=== PATIENT | female | born 1975 | race Caucasian/White ===

== ENCOUNTER → 2018-09-01 | Outpatient (CLI) | payer BC, OTHER ==
--- NOTE | 2018-09-01 11:43 | Diagnostic Imaging Report ---
PROCEDURE: US Gallbladder. TECHNIQUE: Multiple real-time grayscale images were obtained over the right upper quadrant in various projections. INDICATION: Abdominal pain. COMPARISON: There are no prior studies available for comparison. FINDINGS: There is no evidence for cholelithiasis or acute cholecystitis. The common bile duct was not well visualized. The liver does not appear to be enlarged. There is no focal mass involving the liver. The biliary tree is not abnormally distended. The right kidney is generally unremarkable although the inferior pole was somewhat difficult to visualize. The pancreatic head was also partially obscured. The aorta and inferior vena cava are generally unremarkable. IMPRESSION: 1. There is no acute abnormality of the right upper quadrant. However, the common bile duct, the inferior pole of the right kidney and pancreatic head are partially obscured. 2. If clinical concern regarding an acute abnormality of the gallbladder persists and further imaging is desired, then nuclear medicine hepatobiliary scan would be recommended. Dictated by: Dictated on workstation # [id number]
== END ==
LOC: RAD 09:34
PROVIDERS: ATTEND Nurse Practitioner Family
DX: R14.2 Eructation (principal); R10.11 Right upper quadrant pain
CPT/HCPCS: 76705

== ENCOUNTER → 2018-09-19 | Outpatient (CLI) | payer OTHER ==
[~2018-09-19] MED LIST: CATHETER FLUSH 10 ML SYR IV PRN
--- NOTE | 2018-09-19 13:25 | Diagnostic Imaging Report ---
HEPATOBILIARY SCAN DATE: September 19, 2018. INDICATION: 43-year-old female, abdominal pain. Comparison: Right upper quadrant abdominal ultrasound September 01, 2018. PROCEDURE: 5.48 mCi of Tc-99m Choletec was administered intravenously and serial anterior planar images over the liver and upper abdomen were obtained. FINDINGS: There is homogenous activity throughout the liver with good clearance of background activity. This indicates good hepatocellular function. Biliary tree activity is seen at 10 minutes. The gallbladder is seen at 15 minutes. There is no enterogastric reflux. The biliary tree is patent. There is no evidence of acute cholecystitis. Ensure was administered for calculation of gallbladder ejection fraction. Gallbladder ejection fraction was calculated to be 28%. IMPRESSION: 1. No evidence of acute cholecystitis or complete common bile duct obstruction. 2. Gallbladder ejection fraction measured lower limits of normal which may be seen with biliary dyskinesia and/or chronic cholecystitis. Dictated by: Dictated on workstation # [id number]
== END ==
LOC: CARD 09:31
PROVIDERS: ATTEND Nurse Practitioner Family
DX: R14.0 Abdominal distension (gaseous) (principal); R14.2 Eructation
CPT/HCPCS: 78227

== ENCOUNTER → 2020-07-21 | Outpatient (CLI) | payer OTHER ==
--- NOTE | 2020-07-21 11:00 | Diagnostic Imaging Report ---
INDICATION: Fall with right hip pain. Time of exam: 10:26 AM Two views of the right hip show normal femoral acetabular alignment. Femoral head and neck are intact. No fractures are seen. Right-sided rami are intact. IMPRESSION: No acute bony abnormality is detected. Dictated by: Dictated on workstation # [id number]
== END ==
LOC: RAD FS 10:14
PROVIDERS: ATTEND Nurse Practitioner
DX: M25.551 Pain in right hip (principal); W19.XXXA Unspecified fall, initial encounter
CPT/HCPCS: 73502

== ENCOUNTER → 2020-11-14 | Outpatient (CLI) | payer OTHER ==
--- NOTE | 2020-11-14 10:04 | Diagnostic Imaging Report ---
INDICATION: Left foot pain. TIME OF EXAM: 9:17 AM 3 views left foot were obtained. FINDINGS: Metatarsals are intact. Phalanges are intact. Midfoot and hindfoot are unremarkable. No fractures are seen. IMPRESSION: No acute bony abnormality is detected. Dictated by: Dictated on workstation # [id number]
== END ==
LOC: ORTHO 09:02
PROVIDERS: ATTEND Orthopaedic Surgery
DX: M79.672 Pain in left foot (principal)
CPT/HCPCS: 73630; G0463; 99203

== ENCOUNTER 2021-03-30 08:33 | Outpatient (CLI) | payer OTHER ==
[~2021-03-30] VITALS: Ht 165 cm; Wt 70.3 kg
[2021-03-30 09:03] VITALS: BP 131/62
[2021-03-30] MEDS ORDERED: SOTROVIMAB 500 MG/NS 100 ML IVPB IV ONE ×2 (09:15)
[2021-03-30] MEDS ORDERED: ACETAMINOPHEN 500 MG TAB (TYLENOL) PO PRN (09:15)
[2021-03-30] MEDS ORDERED: ONDANSETRON 4 MG/2 ML (SDV) Z0FRAN IV PRN (09:15)
[2021-03-30] MEDS ORDERED: diphenhydrAMINE 50 MG/ML INJ (BENADRYL) IV PRN (09:15)
[2021-03-30] MEDS ORDERED: EPINEPHrine INJECTION 1 MG/ML AMP IM PRN (09:15)
[2021-03-30 10:21] VITALS: BP 103/60
== END 2021-03-30 10:25 | disposition home or self-care (01) ==
LOC: INFUSION 08:33
PROVIDERS: ATTEND Nurse Practitioner Family
DX: U07.1 COVID-19 (principal)

== ENCOUNTER → 2021-11-09 | Outpatient (CLI) | payer OTHER ==
[~2021-11-09] VITALS: Ht 165.1 cm; Wt 64.5 kg
[~2021-11-09] MED LIST changes: -CATHETER FLUSH 10 ML SYR IV PRN; +GADOTERATE 0.5 MMOL/ML (CLARISCAN) 15 ML VIAL IV ONE; +IOHEXOL 240 MGI/ML 20 ML (OMNIPAQUE) VIAL IV ONE; +LIDOCAINE 1% INJ 50 ML (XYLOCAINE) VIAL IJ ONE; +LIDOCAINE 1% INJ 50 ML (XYLOCAINE) VIAL ONE
--- NOTE | 2021-11-09 16:52 | Diagnostic Imaging Report ---
INDICATION: Left hip pain. PROCEDURE: Patient was brought to the procedure and placement in the supine position. Skin over the left hip was prepped and draped in the usual sterile fashion. Small amount of 1% lidocaine was utilized for local anesthesia. 20-gauge needle was advanced and placed with its tip at the femoral head neck junction laterally. 50 mL solution of iodinated contrast, normal saline and gadolinium was injected under fluoroscopic observation. Needle was removed and hemostasis was obtained. 15 seconds of fluoroscopic time was utilized. Patient tolerated the procedure well and was sent to MRI in satisfactory condition. IMPRESSION: Successful left hip injection of gadolinium contrast solution, using fluoroscopy. Dictated by: Dictated on workstation # [id number]
--- NOTE | 2021-11-09 18:22 | Diagnostic Imaging Report ---
EXAMINATION: Left lower extremity with contrast from 11/09/2021. TECHNIQUE: Multiplanar, multisequence contrast-enhanced MRI of the left lower extremity was accomplished. INDICATION: Hip pain, muscular strain. Question tendinous injury. Status post fall. FINDINGS: The labrum appears intact. Cartilage within the joint space is preserved. There is minimal osseous protuberance along the posterior border of the femoral head-neck junction. Otherwise, the osseous structures are unremarkable. Muscular structures are grossly unremarkable with areas of T2 hyperintensity anteriorly, likely fluid injected at the time of arthrogram. The hamstrings tendon origins are bilaterally symmetric and intact. Iliopsoas tendons and musculature are unremarkable. Tendinous insertion at the greater trochanter is unremarkable. Visualized intrapelvic structures demonstrate a small cystic lesion in the right adnexa measuring 2.4 cm in greatest dimension, likely a cyst associated with the right ovary. Minimal adjacent free fluid is noted. IMPRESSION: 1. Labrum is intact with the left hip unremarkable. 2. Visualized tendons are intact. 3. Likely ovarian cyst in the right ovary with adjacent free fluid in the pelvis, likely physiologic. Additionally, not mentioned above, there is a large heterogeneous lesion within the uterus measuring 4.9 cm in greatest dimension, likely a fibroid. These findings are better characterized with pelvic sonography, as clinically warranted. Dictated by: Dictated on workstation # [id number]
== END ==
LOC: RAD 13:49
PROVIDERS: ATTEND Family Medicine
DX: N85.9 Noninflammatory disorder of uterus, unspecified (principal)
CPT/HCPCS: 27093; 73525; 73722

== ENCOUNTER → 2021-11-13 | Outpatient (CLI) | payer OTHER ==
--- NOTE | 2021-11-13 12:00 | Diagnostic Imaging Report ---
PROCEDURE: Pelvic comp/transvaginal sonogram. TECHNIQUE: Complete transabdominal and transvaginal pelvic ultrasound was performed. In addition, limited pelvic Doppler was performed. INDICATION: Abnormal recent MRI demonstrating questionable right ovarian cyst. In addition question was raised to a uterine mass, likely a fibroid. Study is performed for further evaluation. Correlation is made with recent MRI of the left lower extremity from 11/09/2021. Uterus is anteverted measuring 7.9 x 5.0 x 6.5 cm. There is a mass in the posterior uterus measuring 5.6 x 4.6 x 4.6 cm, likely a fibroid. Endometrium is 3 mm in thickness. Right ovary measures 3.6 x 2.5 x 2.2 cm and the left ovary measures 2.2 x 1.2 x 1.9 cm. Right ovary does contain a 2.5 cm cyst, likely accounting for the MRI abnormality. There is blood flow to both ovaries. No free fluid is seen. IMPRESSION: 1. Large uterine fibroid. 2. 2.5 cm right ovarian cyst. Dictated by: Dictated on workstation # [id number]
== END ==
LOC: RAD 10:30
PROVIDERS: ATTEND Nurse Practitioner Family
DX: D25.9 Leiomyoma of uterus, unspecified (principal); N83.209 Unspecified ovarian cyst, unspecified side; K59.09 Other constipation; W10.8XXS Fall (on) (from) other stairs and steps, sequela; M62.81 Muscle weakness (generalized); D50.8 Other iron deficiency anemias; Y92.098 Other place in other non-institutional residence as the place of occurrence of the external cause; S39.013S Strain of muscle, fascia and tendon of pelvis, sequela; S76.012S Strain of muscle, fascia and tendon of left hip, sequela
CPT/HCPCS: 76830; 76856